=== PATIENT | male | born 1965 | race Caucasian/White ===

== ENCOUNTER → 2016-11-09 | Outpatient (CLI) | payer OTHER ==
--- NOTE | 2016-11-09 10:44 | DI ---
Indication: [email or web address]: DIAGNOSTIC IMAGING Procedure: CHEST, PA LATERAL: Encounter: Initial Comparison: None Technique: PA and lateral radiographs of the chest were obtained. Findings: Lungs and airways: Normal lung volumes. No focal airspace consolidation. Normal pulmonary vasculature. Pleura: No pleural effusion or pneumothorax. Heart and mediastinum: The cardiomediastinal silhouette and great vessels are within normal limits. Osseous structures and soft tissues: No acute osseous abnormality is seen. Postoperative changes of median sternotomy. Impression: No acute cardiopulmonary process. .
--- NOTE | 2016-11-09 10:46 | DI ---
Indication: [email or web address].REASON: [id number] Procedure: KNEE RIGHT 2 VIEW: Encounter: Initial Comparison: None Technique: AP and lateral views of the right knee were obtained Findings: Bony mineralization is normal. The visualized osseous structures appear intact with no acute fracture identified. Minimal degenerative joint arthrosis. No focal radiographically apparent soft tissue swelling. No joint effusion. No radiopaque foreign body. Impression: Minimal degenerative joint arthrosis. .
--- NOTE | 2016-11-09 10:46 | DI ---
Indication: [email or web address].[email or web address]: DIAGNOSTIC IMAGING Procedure: HIP LEFT 2 VIEW: Encounter: Initial Comparison: None Technique: AP and frog-leg lateral views of the left hip were obtained Findings: Bony mineralization is normal. The visualized osseous structures appear intact with no acute fracture identified. Mild degenerative joint arthrosis. No focal radiographically apparent soft tissue swelling. No radiopaque foreign body. Impression: Mild degenerative joint arthrosis. .
--- NOTE | 2016-11-09 10:48 | DI ---
Indication: [email or web address].REASON: DIAGNOSTIC IMAGING Procedure: HAND LEFT 3 VIEW: Encounter: Initial Comparison: None Technique: Three views of the left hand were obtained Findings: Bony mineralization is normal. The visualized osseous structures appear intact with no acute fracture identified. The joint spaces are maintained. No focal radiographically apparent soft tissue swelling. No radiopaque foreign body. Impression: No acute osseous abnormality or significant arthritic changes appreciated. .
--- NOTE | 2016-11-09 10:50 | DI ---
Indication: [email or web address].REASON: DIAGNOSTIC IMAGING Procedure: LUMBAR SPINE 2-3 VIEWS: Encounter: Initial Comparison: None Technique: Three views of the lumbar spine were obtained Findings: Bony mineralization is normal. Five nonrib-bearing lumbar-type vertebral bodies are identified. Mild chronic/degenerative appearing height loss within the lower thoracic spine. The lumbar vertebral bodies maintain normal height and alignment without evidence of acute compression fracture or significant spondylolisthesis. Multilevel degenerative disc and lower lumbar facet arthropathy. The SI joint spaces are maintained. The visualized bowel gas pattern is unremarkable. Cholecystectomy clips noted. Impression: Mild degenerative spondylosis, most pronounced within the lower lumbar spine. .
--- NOTE | 2016-11-09 10:50 | DI ---
Indication: [email or web address].REASON: DIAGNOSTIC IMAGING Procedure: FOOT RIGHT 3 VIEWS: Encounter: Initial Comparison: None Technique: AP, lateral, and oblique views of the right foot were obtained Findings: Bony mineralization is normal. The visualized osseous structures appear intact with no acute fracture identified. Degenerative arthrosis and hallux valgus of the first MTP joint. No focal radiographically apparent soft tissue swelling. No radiopaque foreign body. Impression: Degenerative arthrosis and hallux valgus of the first MTP joint. .
--- NOTE | 2016-11-09 10:52 | DI ---
Indication: [email or web address].REASON: DIAGNOSTIC IMAGING Procedure: CERVICAL SPINE 4 OR 5 VIEWS: Encounter: Initial Comparison: None Technique: Five views of the cervical spine were obtained. Findings: Bony mineralization is normal. Postoperative changes of anterior cervical discectomy and fusion at C5-C7. Straightening of the normal cervical lordosis. The vertebral bodies are otherwise normal in height and alignment without evidence of acute fracture or significant spondylolisthesis. Degenerative disc disease at the remaining unfused levels. Multilevel facet arthropathy and uncovertebral hypertrophy resulting in neural foraminal narrowing most pronounced at C4-C5 and C5-C6. The prevertebral soft tissues are within normal limits. The visualized airway appears widely patent. The visualized lung apices are clear. Impression: 1. Postoperative changes of anterior cervical discectomy and fusion from C5 through C7 with straightening of the normal cervical lordosis. 2. Degenerative spondylosis with mild to moderate neural foraminal narrowing most pronounced at C4-C5 and C5-C6. .
--- NOTE | 2016-11-10 23:04 | ECHOF ---
ECHOCARDIOGRAM REPORT DATE OF PROCEDURE November 09, 2016 Left atrial dimension is mildly increased. Left ventricle end-diastolic dimension is at the upper limits of normal. Left ventricle wall thickness is normal. LV systolic function is normal with ejection fraction of 58%. Right atrium is mildly dilated. Right ventricle is normal. Aortic root dimension is normal. Mitral, aortic, tricuspid, and pulmonary valves are morphologically normal with trace of mitral and trace of tricuspid regurgitation with normal estimated pulmonary artery systolic pressure of 19. There is no pericardial effusion. IMPRESSION 1. Normal LV systolic function with ejection fraction of 58%. 2. Mild biatrial dilation. 3. Trace of mitral regurgitation. 4. Trace of tricuspid regurgitation with normal estimated pulmonary artery systolic pressure of 19. MTDD
== END ==
LOC: EDBD → IMA 09:10
DX: Z02.9 Encounter for administrative examinations, unspecified (principal)
CPT/HCPCS: 93306